=== PATIENT | male | born 1955 | race Caucasian/White ===

== ENCOUNTER 2019-10-05 09:49 | Outpatient (CLI) | payer OTHER, SELFPAY ==
[2019-10-05 10:38] LABS: Hematocrit 45.2 % (42.0-52.0); Hemoglobin 15.2 g/dL (14.0-18.0); Mean Corpuscular HGB Conc 33.6 g/dl (32-36); Mean Corpuscular Hemoglobin 31.9 pg (26-34); Mean Platelet Volume 10.8 fl (7.4-10.4); Platelet Count Result 248 k/mm3 (150-375); Red Blood Count 4.76 M/mm3 (4.6-6.20); Red Cell Distribution Width 13.3 % (11.5-14.5); White Blood Count 11.3 K/mm3 (4.5-10.0)
[2019-10-05 10:48] LABS: CRP 7.2 mg/dL (<1.0); Uric Acid 4.7 mg/dL (3.5-8.5)
[2019-10-05 11:38] LABS: Appearance Synovial Fluid Cloudy (Clear); Color Synovial Fluid Yellow (Colorless); Source Synovial Fluid Synovial fluid
[2019-10-05 11:39] LABS: Lymphocytes Synovial Fluid 1 %; Monocytes Synovial Fluid 10 %; Neutrophils Synovial Fluid 89 % (0-25); Nucleated Cell Synovial Fluid 13544 /uL (0-200); RBC Synovial Fluid 13353 /uL (0-0)
[2019-10-05 11:55] LABS: Erythrocyte Sedimentation Rate 18 mm/hr (0-20)
== END 2019-10-05 09:50 | disposition home or self-care (01) ==
PROVIDERS: Visit Provider Orthopaedic Surgery
DX: M17.11 Unilateral primary osteoarthritis, right knee (principal); M13.861 Other specified arthritis, right knee
CPT/HCPCS: 36415; 84550; 85027; 85652; 86140; 87070; 87075; 87076; 87205; 88108; 89051

== ENCOUNTER 2019-11-11 13:05 | Outpatient (NON) | payer OTHER, SELFPAY ==
[2019-11-11 14:57] LABS: Crystals Synovial Fluid None Seen (None Seen)
[2019-11-11 14:58] LABS: Appearance Synovial Fluid Clear (Clear); Color Synovial Fluid Yellow (Colorless); Lymphocytes Synovial Fluid 62 %; Monocytes Synovial Fluid 22 %; Neutrophils Synovial Fluid 16 % (0-25); Nucleated Cell Synovial Fluid 260 /uL (0-200); RBC Synovial Fluid 429 /uL (0-0); Source Synovial Fluid Synovial fluid
== END 2019-11-11 13:06 ==
LOC: ANHLAB 13:08
PROVIDERS: Visit Provider Orthopaedic Surgery
DX: M17.11 Unilateral primary osteoarthritis, right knee (principal)
CPT/HCPCS: 87070; 87075; 87205; 89051; 89060

== ENCOUNTER 2022-10-29 16:33 | Outpatient (NON) | payer OTHER, SELFPAY ==
[2022-10-29 18:43] LABS: Crystals Synovial Fluid None Seen (None Seen)
[2022-10-29 19:03] LABS: Appearance Synovial Fluid Cloudy (Clear); Color Synovial Fluid Yellow (Colorless); Nucleated Cell Synovial Fluid 16225 /uL (0-200); Source Synovial Fluid Synovial fluid
[2022-10-29 19:04] LABS: Monocytes Synovial Fluid 18 %; Neutrophils Synovial Fluid 82 % (0-25); RBC Synovial Fluid 15000 /uL (0-0)
== END 2022-10-29 16:34 | disposition home or self-care (01) ==
LOC: ANHLAB 16:35
PROVIDERS: Visit Provider Physician Assistant Surgical
DX: M25.461 Effusion, right knee (principal)
CPT/HCPCS: 87070; 87075; 87205; 89051; 89060

== ENCOUNTER 2022-11-10 13:36 | Outpatient (CLI) | payer OTHER, SELFPAY ==
[2022-11-10 13:56] LABS: Basophils Absolute Auto 0.1 K/mm3 (0.0-0.1); Basophils Percent Auto 0.7 % (0.2-1.2); Eosinophils Absolute Auto 0.2 K/mm3 (0-0.3); Eosinophils Percent Auto 2.3 % (0-4.4); Hematocrit 43.6 % (42.0-52.0); Hemoglobin 14.8 g/dL (14.0-18.0); Immature Granulocyte Absolute 0.04 K/mm3 (0.00-0.031); Immature Granulocyte Percent A 0.6 % (0-0.5); Lymphocytes Absolute Auto 2.22 K/mm3 (0.9-3.2); Lymphocytes Percent Auto 32.4 % (18.3-44.2); Mean Corpuscular HGB Conc 33.9 g/dl (32-36); Mean Corpuscular Hemoglobin 32.6 pg (26-34); Mean Platelet Volume 9.9 fl (7.4-10.4); Monocytes Absolute Auto 0.5 K/mm3 (0.1-0.6); Monocytes Percent Auto 7.1 % (2.6-8.5); Neutrophils Absolute Auto 3.9 K/mm3 (1.3-6.7); Neutrophils Percent Auto 56.9 % (45.5-73.1); Platelet Count Result 246 k/mm3 (150-375); Red Blood Count 4.54 M/mm3 (4.6-6.20); Red Cell Distribution Width 13.2 % (11.5-14.5); White Blood Count 6.9 K/mm3 (4.5-10.0)
[2022-11-10 14:08] LABS: Rheumatoid Factor < 12.0 IU/ML (<12)
[2022-11-10 14:09] LABS: CRP < 0.5 mg/dL (<1.0); Uric Acid 5.1 mg/dL (3.5-8.5)
[2022-11-10 18:55] LABS: Erythrocyte Sedimentation Rate 6 mm/hr (0-20)
== END 2022-11-10 13:37 | disposition home or self-care (01) ==
LOC: ANHLAB 13:38
PROVIDERS: Visit Provider Orthopaedic Surgery
DX: M25.461 Effusion, right knee (principal); M17.11 Unilateral primary osteoarthritis, right knee
CPT/HCPCS: 36415; 84550; 85025; 85652; 86038; 86140; 86430

== ENCOUNTER 2023-10-24 10:34 | Emergency (ER) | payer OTHER, SELFPAY ==
--- NOTE | 2023-10-24 10:53 | ED.ABDPAIN ---
HPI - Abdominal Pain General Chief Complaint: Abdominal Pain Stated Complaint: diverticullitis Time Seen by Provider: 10/24/23 10:53 Source: patient Mode of arrival: ambulatory Limitations: no limitations History of Present Illness HPI narrative: Tom is a 68-year-old male patient presenting to the clinic today with complaints of left lower quadrant abdominal pain-possible diverticulitis x2 days. He reports pain 4 to 5/10 currently and is sharp in nature. Denies any fevers, chills, or body aches. No nausea vomiting or diarrhea. Denies any blood in his stool. Last bowel movement was this morning and normal for the patient. He denies any urinary symptoms. Related Data Home Medications Medication Instructions Recorded Confirmed acyclovir 400 mg tablet mg 10/24/23 amlodipine 5 mg tablet mg 10/24/23 aspirin 81 mg chewable tablet 81 mg PO DAILY 10/24/23 10/24/23 famotidine 40 mg tablet mg 10/24/23 fluticasone furoate 100 inhalation 10/24/23 mcg/actuation blister powder for inhalation (Arnuity Ellipta) losartan 100 mg tablet mg 10/24/23 montelukast 10 mg tablet mg 10/24/23 triamcinolone acetonide 55 mcg 1 spray intranasal DAILY 10/24/23 10/24/23 nasal spray aerosol (Nasacort) Allergies Allergy/AdvReac Type Severity Reaction Status Date / Time No Known Allergies Allergy Verified 10/24/23 11:03 Review of Systems Review of Systems: Pertinent positives per HPI. Patient denies any fever, chills, rash, headache, visual changes, dizziness, cough, runny nose, sore throat, shortness of breath, chest pain, palpitations, nausea, vomiting, diarrhea, constipation, or any urinary issues. PMFSH Comments At the time of my signature, I reviewed and agree with the nursing past medical, surgical, social, and family history. There is no relevant family history pertinent to the patient complaint. Exam Narrative: General: Well-developed, well nourished, in no apparent distress. Head: Normocephalic, atraumatic. Cardio: Regular rate and rhythm, s1 and s2 normal, no murmur appreciated. Resp: Clear to auscultation bilaterally, no rhonchi, rales, wheezing or rubs. Abdomen: Soft, pliable, bowel sounds present in all quadrants, tender to palpation in the left lower quadrant, no organomegly, no CVAT tenderness. Course Course Emergency Course: Portions of this record may have been created with voice recognition software. Level of Care: Express Care Visit Vital Signs Vital signs: Vital signs reviewed Transfer Transfered to: Other ([place], [place] ) Transportation: Other (Private car) Transfer rationale: LLQ abdomen pain- Hx diverticulitis Accepting physician: Dr. Marquis Transfer comments: Private car- NPO MDM - Abdominal Pain MDM Narrative Medical decision making narrative: At the time of visit patient is resting comfortably on the exam table. Patient appears to be nontoxic. Plan: I suspect patient has left lower quadrant abdominal pain likely diverticulitis. Explained to the patient that we cannot do labs or CT scan in the clinic today and recommend transfer to the ER. He would like to be transfer to [facility] and [place], [place]. Called report to Cherri ROCHA and Dr. Werner accepts patient for transfer. Differential Diagnosis Differential diagnosis: Likely abdominal pain, acute appendicitis, constipation, diverticulitis, gastroenteritis, pancreatitis and small bowel obstruction Discharge Plan Discharge Clinical Impression: Abdominal pain, LLQ, History of colonic diverticulitis Patient Disposition: Acute Care Hospital Condition: Stable Prescriptions: No Action famotidine 40 mg tablet amlodipine 5 mg tablet acyclovir 400 mg tablet triamcinolone acetonide [Nasacort] 55 mcg Aerosol,[place] 1 spray INTRANASAL DAILY Rx Instructions: administer into each nostril aspirin 81 mg Tablet,Chewable 81 mg PO
[2023-10-24 10:55] VITALS: BP 147/83; PULSE 66; RESP 18; TEMP 36.5; O2SAT 99
== END 2023-10-24 11:13 | disposition short-term general hospital (02) ==
PROVIDERS: Emergency Provider Nurse Practitioner Family
DX: R10.32 Left lower quadrant pain (principal); Z87.19 Personal history of other diseases of the digestive system
CPT/HCPCS: 99212; G0463